=== PATIENT | female | born 1945 | race Caucasian/White ===

== ENCOUNTER 2018-06-22 11:01 | Emergency (ER) | payer MEDICARE ==
[~2018-06-22] VITALS: Ht 170.2 cm; Wt 64.5 kg
[2018-06-22 11:21] VITALS: BP 128/78
[2018-06-22] MEDS ORDERED: ipratropium/albuterol 3ml nebule NEB ONE (11:50)
== END 2018-06-22 13:43 | disposition home or self-care (01) ==
LOC: ER 11:03
DX: S51.811A Laceration without foreign body of right forearm, initial encounter (principal); J45.909 Unspecified asthma, uncomplicated; W26.9XXA Contact with unspecified sharp object(s), initial encounter; Y93.89 Activity, other specified; Y92.89 Other specified places as the place of occurrence of the external cause; Y99.8 Other external cause status
CPT/HCPCS: 12001; 99284; A6257; A6446; A6449; A6223; A6255; A6258